=== PATIENT | female | born 1975 | race Caucasian/White ===

== ENCOUNTER 2017-03-19 02:23 | Emergency (ER) | payer MEDICAID, OTHER ==
[~2017-03-19] VITALS: Ht 157.5 cm; Wt 84.0 kg
[2017-03-19 02:28] VITALS: Ht 157.5 cm; Wt 84.0 kg
[2017-03-19] MEDS ORDERED: ONDANSETRON 4 MG INJ IV STA (03:15)
[2017-03-19] MEDS ORDERED: SOD CHLORIDE 0.9% 1,000 ML IV STA (03:15)
[2017-03-19] MEDS ORDERED: morphine 4 MG/ML VIAL IV STA (03:15)
[2017-03-19 03:48] LABS: ADD UMIC YES; UR ASCORBIC ACID 20 mg/dL (NEGATIVE); UR BACTERIA FEW /HPF (NONE SEEN); UR BILIRUBIN (Dip) NEGATIVE (NEGATIVE); UR BLOOD (Dip) 1+ mg/dL (NEGATIVE); UR CLARITY SLIGHTLY CLOUDY (CLEAR); UR COLOR YELLOW (YELLOW); UR GLUCOSE (Dip) NEGATIVE (NEGATIVE); UR KETONES (Dip) NEGATIVE (NEGATIVE); UR LEUKOCYTE ESTERASE (Dip) TRACE Leu/ul (NEGATIVE); UR NITRITE (Dip) NEGATIVE (NEGATIVE); UR RBC 1 /HPF (0-5); UR SPECIFIC GRAVITY (Dip) 1.008 (1.003-1.030); UR SQUAMOUS EPITHELIAL CELL FEW /HPF (FEW); UR TOTAL PROTEIN (Dip) NEGATIVE (NEGATIVE); UR UROBILINOGEN (Dip) NEGATIVE (NEGATIVE)
[2017-03-19] MEDS ORDERED: OMEG1CAP31 PO (03:53)
[2017-03-19] MEDS ORDERED: CITRACAL PO (03:53)
[2017-03-19] MEDS ORDERED: SIMV20TA PO (03:53)
[2017-03-19] MEDS ORDERED: ASCO500C7 PO (03:53)
[2017-03-19 04:07] LABS: BASOPHIL # 0.1 10^3/ul (0.0-0.1); BASOPHILS % 0.5 % (0.0-2.0); EOSINOPHILS # 0.2 10^3/ul (0.0-0.5); EOSINOPHILS % 2.3 % (0.0-7.0); HEMATOCRIT 38.3 % (37.0-47.0); HEMOGLOBIN 12.5 g/dl (12.0-16.0); LYMPHOCYTES # 2.7 10^3/ul (0.8-2.9); LYMPHOCYTES % 28.4 % (15.0-51.0); MEAN CORPUSCULAR HEMOGLOBIN 28.1 pg (29.0-33.0); MEAN CORPUSCULAR HGB CONC 32.6 g/dl (32.0-37.0); MEAN CORPUSCULAR VOLUME 86.1 fl (82.0-101.0); MEAN PLATELET VOLUME 9.3 fl (7.4-10.4); MONOCYTE # 0.7 10^3/ul (0.3-0.9); MONOCYTES % 7.3 % (0.0-11.0); NEUTROPHIL # 5.8 10^3/ul (1.6-7.5); NEUTROPHILS % 60.9 % (39.0-77.0); PLATELET COUNT 419 10^3/UL (140-415); RED BLOOD COUNT 4.45 10^6/ul (4.20-5.40); RED CELL DISTRIBUTION WIDTH 14.2 % (11.5-14.5); WHITE BLOOD COUNT 9.5 10^3/ul (4.8-10.8)
--- NOTE | 2017-03-19 04:21 | RADRPT ---
PROCEDURE: US abdomen limited right upper quadrant. CLINICAL INDICATION: Abdominal pain TECHNIQUE: Multiple real-time images were acquired of the patient's right upper quadrant of the ab domen utilizing a high resolution transducer. COMPARISON: None FINDINGS: There is a 1.7 cm gallstone in the gallbladder neck region. There is no pericholecystic fluid or gallbladder wall thickening. The common bile duct measures 4.3 mm in maximal dimension. No free fluid is identified. Pancreas is not seen due to bowel gas. There is diffuse increased hepat ic echogenicity most suggestive of hepatic steatosis. The length of the right lobe of the liver equa ls 19.5 cm suggestive of hepatomegaly. The right kidney measures 10.2 cm in length and is unremarka ble. IMPRESSION: 1.7 cm gallstone in gallbladder neck region. Pancreas not seen. Diffuse increased hepatic echogenici ty most suggestive of hepatic steatosis. Consistent with hepatomegaly. RPTAT: HJES .John Griffin MD, MD Date Time Electronically viewed and signed by .John Griffin MD, on 03/19/2017 04:21 .S/
[2017-03-19 04:23] LABS: ALBUMIN 4.3 g/dl (3.3-4.9); ALBUMIN/GLOBULIN RATIO 1.22; BILIRUBIN,INDIRECT 0.3 mg/dl (0-1.1); BILIRUBIN,TOTAL 0.3 mg/dl (0.2-1.3); CALCIUM 9.6 mg/dl (8.4-10.2); CREATININE 0.71 mg/dl (0.44-1.00); POTASSIUM 3.9 mmol/L (3.5-5.1); TOTAL PROTEIN 7.8 g/dl (6.1-8.1)
--- NOTE | 2017-03-19 05:33 | ERD ---
ER Documentation Chief Complaint Date/Time DATE: 03/19/17 TIME: 05:32 Chief Complaint RUQ abd pain, with nausea and vomiting; no vomiting now HPI This is a very pleasant 42-year-old female comes in right common abdominal pain that started 7 hours ago. There is mild to moderate in intensity with associated nausea and 2 episodes of bilious vomiting. No fevers no chills. No blood in stool. Pain is since resolved. Vomiting is also resolved. no Blood in vomit ROS All systems reviewed and are negative except as per history of present illness. Medications Home Meds Reported Medications [place]-3/Dha/Epa/Fish Oil (FISH OIL 1,000 MG SOFTGEL) 1 Each Capsule, 1 EACH PO, CAP 03/19/17 Calcium Citrate* (Citracal*) 950 Mg Tab, 950 MG PO DAILY, TAB 03/19/17 Ascorbic Acid* (Vitamin C*) 500 Mg Capsule.sa, 500 MG PO DAILY, CAP 03/19/17 Simvastatin* (Zocor*) 20 Mg Tablet, 20 MG PO QHS, #30 TAB 03/19/17 Allergies Allergies: Coded Allergies: No Known Allergy (Unverified , 03/19/17) PMhx/Soc History of Surgery: Yes () Anesthesia Reaction: No Hx Neurological Disorder: No Hx Respiratory Disorders: No Hx Cardiac Disorders: Yes (high cholesterol) Hx Psychiatric Problems: No Hx Miscellaneous Medical Probl: No Hx Alcohol Use: No Hx Substance Use: No Hx Tobacco Use: No Smoking Status: Never smoker Physical Exam Vitals Vital Signs Date Time Temp Pulse Resp B/P Pulse Ox O2 Delivery O2 Flow Rate FiO2 03/19/17 02:28 98.9 69 20 188/102 99 Physical Exam Const: [] Head: Atraumatic Eyes: Normal Conjunctiva ENT: Normal External Ears, Nose and Mouth. Neck: Full range of motion..~ No meningismus. Resp: Clear to auscultation bilaterally Cardio: Regular rate and rhythm, no murmurs Abd: Soft, non tender, non distended. Normal bowel sounds Skin: No petechiae or rashes Back: No midline or flank tenderness Ext: No cyanosis, or edema Neur: Awake and alert Psych: Normal Mood and Affect Result Diagram: 03/19/175 03/19/17 0315 Results 24 hrs Laboratory Tests Test 03/19/17 03:15 White Blood Count 9.510^3/ul Red Blood Count 4.4510^6/ul Hemoglobin 12.5g/dl Hematocrit 38.3% Mean Corpuscular Volume 86.1fl Mean Corpuscular Hemoglobin 28.1pg Mean Corpuscular Hemoglobin Concent 32.6g/dl Red Cell Distribution Width 14.2% Platelet Count 09510^3/UL Mean Platelet Volume 9.3fl Neutrophils % 60.9% Lymphocytes % 28.4% Monocytes % 7.3% Eosinophils % 2.3% Basophils % 0.5% Nucleated Red Blood Cells % 0.0/100WBC Neutrophils # 5.810^3/ul Lymphocytes # 2.710^3/ul Monocytes # 0.710^3/ul Eosinophils # 0.210^3/ul Basophils # 0.110^3/ul Nucleated Red Blood Cells # 0.010^3/ul Urine Color YELLOW Urine Clarity SLIGHTLY CLOUDY Urine pH 7.0 Urine Specific Cecil 1.008 Urine Ketones NEGATIVEmg/dL Urine Nitrite NEGATIVEmg/dL Urine Bilirubin NEGATIVEmg/dL Urine Urobilinogen NEGATIVEmg/dL Urine Leukocyte Esterase TRACELeu/ul Urine Microscopic RBC 1/HPF Urine Microscopic WBC 3/HPF Urine Squamous Epithelial Cells FEW/HPF Urine Bacteria FEW/HPF Urine Hemoglobin 1+mg/dL Urine Glucose NEGATIVEmg/dL Urine Total Protein NEGATIVEmg/dl Sodium Level 143mmol/L Potassium Level 3.9mmol/L Chloride Level 106mmol/L Carbon Dioxide Level 27mmol/L Anion Gap 14 Blood Urea Nitrogen 13mg/dl Creatinine 0.71mg/dl Glucose Level 107mg/dl Calcium Level 9.6mg/dl Total Bilirubin 0.3mg/dl Direct Bilirubin 0.00mg/dl Indirect Bilirubin 0.3mg/dl Aspartate Amino Transf (AST/SGOT) 36IU/L Alanine Aminotransferase (ALT/SGPT) 52IU/L Alkaline Phosphatase 124IU/L Total Protein 7.8g/dl Albumin 4.3g/dl Globulin 3.50g/dl Albumin/Globulin Ratio 1.22 Lipase 233U/L Current Medications Medications (Trade) Dose Ordered Sig/Mic Route PRN Reason Start Time Stop Time Status Last Admin Dose Admin Sodium Chloride (NS) 1,000 ml @ 1,000 mls/hr Q1H STAT IV 03/19/17 03:15 03/19/17 04:14 DC 03/19/17 03:25 Morphine Sulfate (morphine) 4 mg ONCE STAT IV 03/19/17 03:15 03/19/17 03:16 DC 03/19/17 03:25 Ondansetron HCl (Zofran Inj) 4 mg ONCE STAT IV 03/19/17 03:15 03/19/17 03:16 DC 03/19/17 03:25 Procedures/MDM CBC: [no e/o of systemic infection or severe anemia] CMP: [no e/o severe acidosis, alkalosis, renal failure, diabetic ketoacidosis, liver disease] Lipase: [no e/o pancreatitis] PT/INR: [normal coagulation] Urine: [no e/o acute infection or hematuria] Regular decision-makin year female biliary colic. At this point clinically stable. Patient be discharged on pain medication and nausea medication. Follow-up with PCP with outpatient surgery referral. Departure Diagnosis: Primary Impression: Abdominal pain Abdominal location: right upper quadrant Qualified Code: R10.11 - Right upper quadrant abdominal pain Condition: Stable KEON ANDRES Mar 19, 2017 05:33
[2017-03-19] MEDS ORDERED: HYDR-902 PO (05:34)
[2017-03-19] MEDS ORDERED: ONDA4TAB14 PO (05:34)
[2017-03-19 05:48] VITALS: BP 120/67; PULSE 82; RESP 18; TEMP 98.1
== END 2017-03-19 05:49 | disposition home or self-care (01) ==
LOC: E/R 02:23
DX: K80.50 Calculus of bile duct without cholangitis or cholecystitis without obstruction (principal)
CPT/HCPCS: 36415; 76705; 80053; 81001; 83690; 85025; 96374; 96375; J2270; J2405; J7030; Z7502